=== PATIENT | male | born 1990 | race Asian ===

== ENCOUNTER 2022-11-30 16:57 | Emergency (ER) | payer BC ==
[~2022-11-30] VITALS: Ht 170.2 cm; Wt 82.0 kg
[2022-11-30 17:00] VITALS: BP 128/90
[2022-11-30] MEDS ORDERED: IBUP-2029 MT (18:53)
[2022-11-30] MEDS ORDERED: IBUPROFEN 600MG TABLET PO ONE (19:00)
== END 2022-11-30 19:13 | disposition home or self-care (01) ==
LOC: ER 16:57
DX: S09.90XA Unspecified injury of head, initial encounter (principal); J45.909 Unspecified asthma, uncomplicated; W22.8XXA Striking against or struck by other objects, initial encounter; Y93.89 Activity, other specified; Y92.89 Other specified places as the place of occurrence of the external cause; Y99.8 Other external cause status
CPT/HCPCS: 99283